=== PATIENT | male | born 2005 | race African-American/Black ===

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

== ENCOUNTER 2025-04-21 18:28 | Emergency (ER) | payer OTHER, MEDICAID ==
[~2025-04-21] VITALS: Ht 193 cm; Wt 147.1 kg
[~2025-04-21 18:28] MED LIST: IBUP1TAB5 PO
[2025-04-21] MEDS: IBUPROFEN 800 MG TAB PO ONE (19:27)
[2025-04-21] MEDS: ONDANSETRON ODT 4 MG TAB PO ONE (19:27)
[2025-04-21 19:28] VITALS: BP 141/72; PULSE 98; RESP 18; O2SAT 98
--- NOTE | 2025-04-21 19:34 | DVH ---
CHEST RADIOGRAPH Indication: Cough Technique: Single frontal view of the chest was obtained Comparison: None FINDINGS: Lines and Tubes: None Lungs: No focal consolidation. Pleura: No effusion. No pneumothorax. Cardiomediastinal contours: Unremarkable Bones: No acute osseous abnormality. IMPRESSION: No acute cardiopulmonary disease.
[2025-04-21 20:21] LABS: Urine Budding Yeast OCCASIONAL /hpf (None Seen); Urine Protein, UAD 1+ (Negative)
[2025-04-21 20:23] LABS: COVID19 ANTIGEN SOFIA FIA NEGATIVE (NEGATIVE)
--- NOTE | 2025-04-21 20:32 | ED.PDOC ---
History of Present Illness HPI Comments This patient is a morbidly obese 19 year old male who came to the ER for complaints of generalized weakness, cough with chest congestion and body pains. Patient has been having flu-like symptoms for the past three weeks, including generalized body pains, intermittent fevers, chest discomfort, nausea and among others. Upon arrival temperature was 100.1 F. Patient denies any recent travel or new food sources. Chief Complaint: Body Pain Time Seen by MD: 20:32 Primary Care Provider: CARLITO Ovalles Notes: Nurses Notes Allergies: Coded Allergies: NO KNOWN ALLERGIES (Unverified , 10/15/18) Home Meds Active Scripts Ibuprofen Micronized (Ibuprofen) 600 Mg Tab, 1 TAB PO Q6HPRN PRN, #20 TAB as needed for pain Prov:MARLEEN MASON NP 11/22/23 Information Source: Patient, Relative (Mother) Mode of Arrival: Ambulatory Severity: Mild Timing: Days Duration: Intermittent Prehospital treatment: Treatment Past Medical History PAST MEDICAL HISTORY: Denies Surgical History: Denies all surgeries Family History Family History: Reviewed,noncontributory to illness Social History Smoker: Non-Smoker Alcohol: Denies ETOH Use Drugs: Denies Drug Use Lives In: Home Constitutional: reports: fatigue, fever, malaise, weakness; denies: chills, diaphoresis, sweats, others EENTM: denies: blurred vision, double vision, ear bleeding, ear discharge, ear drainage, ear pain, ear ringing, eye pain, eye redness, hearing loss, mouth pain, mouth swelling, nasal discharge, nose bleeding, nose congestion, nose pain, photophobia, tearing, throat pain, throat swelling, voice changes, others Respiratory: denies: cough, hemoptysis, orthopnea, SOB at rest, shortness of breath, SOB with excertion, stridor, wheezing, others Cardiovascular: reports: chest pain; denies: dizzy spells, diaphoresis, Dyspnea on exertion, edema, irregular heart beat, left arm pain, lightheadedness, palpitations, PND, syncope, others Gastrointestinal: reports: nausea, vomiting; denies: abdomen distended, abdominal pain, blood streaked bowels, constipated, diarrhea, dysphagia, difficulty swallowing, hematemesis, melena, poor appetite, poor fluid intake, rectal bleeding, rectal pain, others Genitourinary: denies: burning, dysuria, flank pain, frequency, hematuria, incontinence, penile discharge, penile sore, pain, testicle pain, testicle swelling, urgency, others Neurological: denies: dizziness, fainting, headache, left sided numbness, left sided weakness, numbness, paresthesia, pre-existing deficit, right sided numbness, right sided weakness, seizure, speech problems, tingling, tremors, weakness, others Musculoskeletal: denies: back pain, gout, joint pain, joint swelling, muscle pain, muscle stiffness, neck pain, others Integumetry: denies: bruises, change in color, change in hair/nails, dryness, laceration, lesions, lumps, rash, wounds, others Allergic/Immunocompromised: denies: Difficulty Healing, Frequent Infections, Hives, Itching, others Hematologic/Lymphatic: denies: anemia, blood clots, easy bleeding, easy bruising, swollen glands, others Endocrine: denies: excessive hunger, excessive sweating, excessive thirst, excessive urination, flushing, intolerance to cold, intolerance to heat, unexplained weight gain, unexplained weight loss, others Psychiatric: denies: anxiety, bipolar disorder, depression, hopeless, panic disorder, schizophrenia, sleepless, suicidal, others Physical Exam General Appearance: Mild Distress (Moderate distress due to general weakness concerns. Patient did not look toxic.), Obese HEENT: Normal ENT Inspection, Pharynx Normal, TMs Normal Neck: Full Range of Motion, Non-Tender, Normal, Normal Inspection Respiratory: Chest Non-Tender, Lungs Clear, No Accessory Muscle Use, No Respiratory Distress, Normal Breath Sounds, Other (Unremarkable auscultation bilateral lung fernandez.) Cardiovascular: No Edema, No JVD, No Murmur, No Gallop, Normal Peripheral Pulses, Regular Rate/Rhythm Breast Exam: Deferred Gastrointestinal: No Organomegaly, Non Tender, No Pulsatile Mass, Normal Bowel Sounds, Soft Genitalia: Deferred Pelvic: Deferred Rectal: Deferred Extremities: No calf tenderness, Normal inspection, Normal range of motion, Non-tender Musculoskeletal : Apperance: Normal Neurologic: Alert Cerebellar Function: NOT DONE Reflexes: NOT DONE Skin: Dry, Normal Color, Warm Lymphatic: No Adenopathy Was a procedure done? Was a procedure done?: No Differential Dx Considerations may include: Viral illness, pneumonia, viral upper respiratory illness, sepsis, electrolyte abnormality, UTI, COVID, influenza X-Ray, Labs, Meds, VS Vital Signs Date Time Temp Pulse Resp B/P (MAP) Pulse Ox O2 Delivery O2 Flow Rate FiO2 04/21/25 21:09 100.1 04/21/25 20:52 100.1 04/21/25 19:28 98 18 98 Room Air 04/21/25 19:28 101.6 98 18 141/72 (95) 96 101.6 04/21/25 19:27 101.6 04/21/25 18:30 100.1 101 18 130/77 100 100.1 Lab Test 04/21/25 19:55 04/21/25 19:20 Range/Units White Blood Count 10.3 4.4-10.8 10^3/uL Red Blood Count 5.29 4.5-5.90 10^6/uL Hemoglobin 14.8 13.5-17.5 g/dL Hematocrit 44.2 41.0-53.0 % Mean Corpuscular Volume 83.5 80.0-100.0 fL Mean Corpuscular Hemoglobin 27.9 L 28.0-32.0 pg Mean Corpuscular Hemoglobin Concent 33.4 32.0-36.0 g/dL Red Cell Distribution Width 16.0 H 11.8-14.3 % Platelet Count 300 140-450 10^3/uL Mean Platelet Volume 7.6 6.9-10.8 fL Neutrophils (%) (Auto) 79.2 37.0-80.0 % Lymphocytes (%) (Auto) 11.9 10.0-50.0 % Monocytes (%) (Auto) 8.2 0.0-12.0 % Eosinophils (%) (Auto) 0.4 0.0-7.0 % Basophils (%) (Auto) 0.3 0.0-2.0 % Neutrophils # (Auto) 8.2 1.6-8.6 10 ^3/uL Lymphocytes # (Auto) 1.2 0.4-5.4 10 ^3/uL Monocytes # (Auto) 0.8 0-1.3 10 ^3/uL Eosinophils # (Auto) 0 0-0.8 10 ^3/uL Basophils # (Auto) 0 0-0.2 10 ^3/uL Nucleated Red Blood Cells 0.1 % Sodium Level 139 136-145 mmol/L Potassium Level 3.9 3.5-5.1 mmol/L Chloride Level 101 98-107 mmol/L Carbon Dioxide Level 30 20-31 mmol/L Anion Gap 8 5-15 Blood Urea Nitrogen 10 9-23 mg/dL Creatinine 1.34 H 0.700-1.30 mg/dL Glomerular Filtration Rate Calc 78 >90 mL/min BUN/Creatinine Ratio 7.5 L 10.0-20.0 Serum Glucose 111 H 74-106 mg/dL Calcium Level 9.2 8.7-10.4 mg/dL Urine Color Yellow Yellow Urine Clarity Clear Clear Urine pH 6.5 5.0-9.0 Urine Specific Lynx 1.038 H 1.001-1.035 Urine Protein 1+ H Negative Urine Ketones Trace Negative Urine Blood Trace H Negative /uL Urine Nitrite Negative Negative Urine Bilirubin Negative Negative Urine Urobilinogen 3 H Negative mg/dL Urine Leukocyte Esterase Trace Negative /uL Urine RBC 28 0 - 3 /hpf Urine Microscopic WBC 1 0-3 /HPF Urine Squamous Epithelial Cells Few <5 /hpf Urine Bacteria None seen None Seen /hpf Urine Mucus Few None Seen Urine Yeast (Budding) Occasional None Seen /hpf Urine Glucose Normal Normal mg/dL Influenza Type A Antigen Negative Negative Influenza Type B Antigen Negative Negative SARS-CoV-2 Antigen (Rapid) Negative NEGATIVE Current Medications Medications (Trade) Dose Ordered Sig/Lydia Route Start Time Stop Time Status Last Admin Ondansetron HCl (Zofran Po) 4 mg ONCE ONCE PO 04/21/25 18:45 04/21/25 18:47 DC 04/21/25 19:27 Ibuprofen (Motrin Tablet) 800 mg ONCE ONCE PO 04/21/25 18:45 04/21/25 18:47 DC 04/21/25 19:27 Acetaminophen (Tylenol Tablet Or Capsule) 1,000 mg ONCE ONCE PO 04/21/25 21:00 04/21/25 21:01 DC 04/21/25 21:09 X-Ray, Labs, Meds, VS Comment All studies performed in the ED were evaluated by me personally. Serum studies were unremarkable for any systemic concerns and swabs were unremarkable for any COVID or influenza. Chest x-ray was unremarkable for any consolidation or intrapulmonary concerns. Patient appears to be suffering from a prolonged viral illness. Advise utilizing Tylenol and or Motrin as needed for fever reduction and pain relief as well as Zofran for nausea and vomiting. Good hydration and healthy nutrition has been advised. Time of 1ST Reevaluation: 21:18 Reevaluation 1ST: Improved Consultation: PCP Patient Education/Counseling: Diagnosis, Treatment Family Education/Counseling: Diagnosis, Treatment, No Family Present SEPSIS Sepsis Screen Date sepsis recognized/suspect: Apr 21, 2025 Time Sepsis recognized/suspect: 1832 Recent Procedure: No On Antibiotic Therapy: No Respiratory Rate >20: No Heart Rate >90: Yes Temp<36 C (96.8 F) or >38.3 C: No SBP <90 or MAP <65 mmHG: No New Acute Mental Status Change: No Is the patient on CPAP, BIPAP,: No Physician Orders Chest Portable (04/21/25 18:44) Vital Signs Date Time Temp Pulse Resp B/P (MAP) Pulse Ox O2 Delivery O2 Flow Rate FiO2 04/21/25 21:09 100.1 04/21/25 20:52 100.1 04/21/25 19:28 98 18 98 Room Air 04/21/25 19:28 101.6 98 18 141/72 (95) 96 101.6 04/21/25 19:27 101.6 04/21/25 18:30 100.1 101 18 130/77 100 100.1 Laboratory Tests Test 04/21/25 19:55 White Blood Count 10.3 10^3/uL (4.4-10.8) Medications Medications Dose Ordered Sig/Lydia Route Start Time Stop Time Status Last Admin Dose Admin Acetaminophen 1,000 mg ONCE ONCE PO 04/21/25 21:00 04/21/25 21:01 DC 04/21/25 21:09 Ibuprofen 800 mg ONCE ONCE PO 04/21/25 18:45 04/21/25 18:47 DC 04/21/25 19:27 Ondansetron HCl 4 mg ONCE ONCE PO 04/21/25 18:45 04/21/25 18:47 DC 04/21/25 19:27 Departure 1 Departure Time of Disposition: 21:19 Impression: Primary Impression: Viral illness Disposition: HOME / SELF CARE / HOMELESS Condition: Stable Additional Instructions: Advised patient utilize Tylenol and or Motrin as needed for fever reduction and pain relief. Advised good hydration and healthy nutrition throughout illness event. e-Prescriptions Ondansetron Odt 4MG Tab (ZOFRAN PO) 4 Mg Tb 4 MG PO Q6HP PRN, #20 TAB ODT TAB-DISSOLVE IN MOUTH, THEN SWALLOW Prov: GONSALO CHOW PAC 04/21/25 Acetaminophen (Acetaminophen) 500 Mg Tab 500 MG PO Q4HP PRN, #30 TAB Prov: GONSALO CHOW PAC 04/21/25 Ibuprofen Micronized (Ibuprofen) 800 Mg Tab 800 MG PO Q8HP PRN, #20 TAB Prov: GONSALO CHOW PAC 04/21/25 Discharged With: Self, Relative (Mother) Critical Care Note Critical Care Time?: No Stability Stability form required: No Heart Score Heart Score: Heart Score Response (Comments) Value History N/A 0 EKG N/A 0 Age N/A 0 Risk Factors N/A 0 Troponin N/A 0 Total 0 I personally scribed for GONSALO CHOW PAC ([email or web address]) on 04/21/25 at 20:32. Electronically submitted by Joe Laboy ([email or web address]). GONSALO CHOW PAC Apr 21, 2025 20:32
[2025-04-21 20:33] LABS: Hematocrit 44.2 % (41.0-53.0); Hemoglobin 14.8 g/dL (13.5-17.5); Mean Corpuscular Hemoglobin 27.9 pg (28.0-32.0); Mean Corpuscular Volume 83.5 fL (80.0-100.0); Nucleated Red Blood Cells % 0.1 %
[2025-04-21 20:41] LABS: Chloride 101 mmol/L (98-107); Potassium 3.9 mmol/L (3.5-5.1); Sodium 139 mmol/L (136-145)
[2025-04-21 20:42] LABS: Anion Gap 8 (5-15); Calcium 9.2 mg/dL (8.7-10.4); Carbon Dioxide 30 mmol/L (20-31)
[2025-04-21 20:47] LABS: BUN/Creatinine Ratio 7.5 (10.0-20.0); Blood Urea Nitrogen 10 mg/dL (9-23)
[2025-04-21 20:54] LABS: Glucose 111 mg/dL (74-106)
[2025-04-21] MEDS: ACETAMINOPHEN 500 MG TAB or CAP PO ONE (21:09)
[2025-04-21] MEDS ORDERED: IBUP-1455 PO (21:22)
[2025-04-21] MEDS ORDERED: ACET500T58 PO (21:22)
[2025-04-21] MEDS ORDERED: ZOFR4T PO (21:22)
[2025-04-21 21:33] VITALS: TEMP 99.5
== END 2025-04-21 21:34 | disposition home or self-care (01) ==
LOC: ER 18:30
DX: B34.9 Viral infection, unspecified (principal); E66.01 Morbid (severe) obesity due to excess calories; Z79.899 Other long term (current) drug therapy; Z68.39 Body mass index [BMI] 39.0-39.9, adult; Z20.822 Contact with and (suspected) exposure to COVID-19
CPT/HCPCS: 36415; 71045; 80048; 81001; 85025; 87426; 87804; 99285; Q0162